=== PATIENT | female | born 1965 | race Two or more races ===

== ENCOUNTER 2017-11-05 09:52 | Emergency (ER) | payer SELFPAY ==
[~2017-11-05] VITALS: Ht 142.2 cm; Wt 52.0 kg
[2017-11-05] MEDS ORDERED: ONDANSETRON HCL 4MG/2ML VIAL IV STA (10:26)
[2017-11-05] MEDS ORDERED: SODIUM CHLORIDE 0.9% 1,000 ML IV ONE (10:26)
[2017-11-05] MEDS ORDERED: FAMOTIDINE 20MG/2ML VIAL IV ONE (10:30)
[2017-11-05 10:53] LABS: BASOPHILS % 0.5 % (0.0-2.0); EOSINOPHILS % 0.1 % (0.0-5.0); HEMATOCRIT. 42.3 % (36.0-48.0); HEMOGLOBIN. 14.3 g/dL (12.0-16.0); LYMPHOCYTES % 15.9 % (20.0-50.0); MEAN CORPUSCULAR HEMOGLOBIN 29.3 pg (28.0-32.0); MEAN CORPUSCULAR VOLUME 86.6 fL (81.0-99.0); MEAN PLATELET VOLUME 9.4 fl (7.4-10.4); MONOCYTES % 6.6 % (2.0-8.0); NEUTROPHILS % 76.9 % (40.0-76.0); PLATELET 304 x1000/uL (130-400); RED BLOOD CELL COUNT 4.89 mill/uL (4.2-5.4); RED CELL DISTRIBUTION WIDTH 13.3 % (11.6-14.6)
[2017-11-05 10:59] LABS: CHLORIDE 101 mEq/L (98-107)
[2017-11-05 12:30] VITALS: BP 145/69
[2017-11-05] MEDS ORDERED: MECLIZINE 25MG TABLET PO ONE (13:15)
== END 2017-11-05 13:56 | disposition home or self-care (01) ==
LOC: ER 13:46
DX: H81.10 Benign paroxysmal vertigo, unspecified ear (principal); R10.13 Epigastric pain
CPT/HCPCS: 36415; 70450; 80053; 85025; 93005; 96361; 96374; 96375; 99285; J2405; J3490; J7030; Z7610; J8597

== ENCOUNTER 2018-12-03 16:53 | Emergency (ER) | payer BC ==
[~2018-12-03] VITALS: Ht 142.2 cm; Wt 52.0 kg
[2018-12-03] MEDS ORDERED: FAMOTIDINE 20MG/2ML VIAL IV STA (18:18)
[2018-12-03] MEDS ORDERED: SODIUM CHLORIDE 0.9% 1,000 ML IV ONE (18:18)
[2018-12-03] MEDS ORDERED: ONDANSETRON HCL 4MG/2ML INJ IV STA (18:18)
[2018-12-03] MEDS ORDERED: CLONIDINE 0.1MG TABLET PO ONE (18:30)
[2018-12-03 18:32] LABS: BASOPHILS % 0.8 % (0.0-2.0); EOSINOPHILS % 0.7 % (0.0-5.0); HEMATOCRIT. 41.7 % (36.0-48.0); HEMOGLOBIN. 14.1 g/dL (12.0-16.0); LYMPHOCYTES % 25.1 % (20.0-50.0); MEAN CORPUSCULAR HEMOGLOBIN 29.6 pg (28.0-32.0); MEAN CORPUSCULAR VOLUME 87.4 fL (81.0-99.0); MEAN PLATELET VOLUME 9.6 fl (7.4-10.4); MONOCYTES % 7.9 % (2.0-8.0); NEUTROPHILS % 65.5 % (40.0-76.0); PLATELET 287 x1000/uL (130-400); RED BLOOD CELL COUNT 4.77 mill/uL (4.2-5.4); RED CELL DISTRIBUTION WIDTH 13.2 % (11.6-14.6)
[2018-12-03 18:38] LABS: CHLORIDE 107 mEq/L (98-107)
[2018-12-03 19:02] LABS: CLARITY URINE CLEAR (CLEAR); COLOR URINE YELLOW (YELLOW); KETONES URINE NEGATIVE (NEGATIVE); LEUKOCYTE ESTERASE URINE NEGATIVE (NEGATIVE); NITRITE URINE NEGATIVE (NEGATIVE); OCCULT BLOOD URINE NEGATIVE (NEGATIVE); PROTEIN URINE NEGATIVE (NEGATIVE); SPECIFIC GRAVITY URINE 1.005 (1.005-1.030); UROBILINOGEN URINE 0.2 E.U./dL (0.2-1.0)
[2018-12-03 20:39] VITALS: BP 133/66
== END 2018-12-03 20:38 | disposition home or self-care (01) ==
LOC: ER 16:53
DX: R10.13 Epigastric pain (principal); I10 Essential (primary) hypertension; R51 Headache; K76.0 Fatty (change of) liver, not elsewhere classified; E78.00 Pure hypercholesterolemia, unspecified; Z98.890 Other specified postprocedural states; Z79.82 Long term (current) use of aspirin
CPT/HCPCS: 36415; 76700; 80053; 81003; 83690; 85025; 93005; 96374; 96375; 99284; J2405; J3490; J7030; Z7610